=== PATIENT | male | born 2000 | race Caucasian/White ===

== ENCOUNTER 2022-05-15 03:33 | Emergency (ER) | payer OTHER, BC ==
[~2022-05-15] VITALS: Ht 182.9 cm; Wt 136.0 kg
[2022-05-15 03:35] VITALS: BP 146/64
[2022-05-15] MEDS ORDERED: PREDNISONE 20MG TABLET PO ONE (04:00)
[2022-05-15] MEDS ORDERED: ALBUTEROL (0.5%) 2.5MG/0.5ML NEB HHN ONE (04:00)
[2022-05-15] MEDS ORDERED: IPRATROPIUM BROMIDE (0.02%) 0.5MG/2.5ML NEB HHN ONE (04:00)
[2022-05-15] MEDS ORDERED: P20 MT (05:26)
[2022-05-15] MEDS ORDERED: ALBU6.7H3 INH (05:26)
== END 2022-05-15 05:35 | disposition home or self-care (01) ==
LOC: ER 03:36
DX: J45.901 Unspecified asthma with (acute) exacerbation (principal); Z20.822 Contact with and (suspected) exposure to COVID-19
CPT/HCPCS: 71045; 87426; 94640; 99284; C9803; J7512; Z7610